=== PATIENT | female | born 1975 | race Caucasian/White ===

== ENCOUNTER 2025-03-03 13:13 | Emergency (ER) | payer MEDICAID ==
[~2025-03-03] VITALS: Ht 167.6 cm; Wt 70.4 kg
[2025-03-03] MEDS: HYDROcodone-ACET 10/325MG TAB PO ONE (15:51)
[2025-03-03 15:53] VITALS: BP 124/77; PULSE 72; RESP 18; TEMP 98.7; O2SAT 98
[2025-03-03 15:53] LABS: Hematocrit 39.5 % (36.0-46.0); Hemoglobin 13.6 g/dL (12.2-16.2); Mean Corpuscular Hemoglobin 31.2 pg (28.0-32.0); Mean Corpuscular Volume 90.4 fL (80.0-100.0); Nucleated Red Blood Cells % 0.0 %
[2025-03-03 15:59] LABS: Chloride 105 mmol/L (98-107); Potassium 4.6 mmol/L (3.5-5.1); Sodium 142 mmol/L (136-145)
[2025-03-03 16:00] LABS: Anion Gap 9 (5-15); Carbon Dioxide 28 mmol/L (20-31)
[2025-03-03 16:01] LABS: Calcium 9.6 mg/dL (8.7-10.4)
[2025-03-03 16:05] LABS: BUN/Creatinine Ratio 20.4 (10.0-20.0); Blood Urea Nitrogen 19 mg/dL (9-23)
[2025-03-03 16:16] LABS: Glucose 120 mg/dL (74-106); Lipase 58 U/L (12-53)
[2025-03-03] MEDS: IOHEXOL 300 MG/ML 100ML BOTTLE IJ ONE (17:22)
--- NOTE | 2025-03-03 17:36 | DVH ---
Exam: CT CT AB PEL WITH IV CON ONLY History: Pancreatic evaluation COMPARISON: None Technique: Multidetector spiral CT of the abdomen and pelvis was performed from lung bases to pubic s ymphysis. Intravenous contrast was administered during this examination. Portal venous imaging was obtained. Axial, coronal and sagittal multiplanar reformats were performed by the technologist on a separate workstation. Radiation Dose : 1. Abdomen/Pelvis: CTDIvol 11.63mGy, DLP 3.92 mGy*cm. CONTRAST: Type of contrast: Omni 300 Contrast injected: 99 ml Findings: Lung Bases: No acute or significant lung base finding. Normal heart size. No pleural or pericardial effusion. Liver: The liver is normal in size. No focal lesions. Normal hepatic vascular enhancement. Diffuse s teatosis. Gallbladder and Biliary Tree: Unremarkable Spleen: Unremarkable Pancreas: The pancreas is normal in appearance without focal lesions or abnormal enhancement. Adrenal Glands: Unremarkable Kidneys: No hydronephrosis. Bladder: Unremarkable Bowel: The stomach is grossly normal in appearance. Small bowel and colon are normal in caliber and d istribution. The appendix is not visualized; however, no secondary findings of acute appendicitis id entified. Ascites: Absent Lymphadenopathy: No mesenteric, retroperitoneal or periportal lymphadenopathy. 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 Vasculature: The visualized abdominal aorta is normal in size and caliber. Abdominal and pelvic vess els demonstrate normal enhancement. Pelvic Organs: Unremarkable Musculoskeletal: No aggressive focal bony lesions, acute fractures or dislocation. IMPRESSION: 1. 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 2. Pancreas appears to be grossly unremarkable. Radiation optimization: All CT scans at this facility use at least one of these dose optimization cam hniques: automated exposure control mA and/or kV adjustment per patient size (includes targeted exam s where dose is matched to clinical indication) or iterative reconstruction.
[2025-03-03] MEDS ORDERED: IBUP-1455 PO (18:23)
[2025-03-03] MEDS ORDERED: HYDR-4798 PO (18:23)
--- NOTE | 2025-03-03 18:24 | ED.PDOC ---
History of Present Illness HPI Comments Patient is a 49-year-old female who arrives to the ED today with complaints of generalized and global body muscle aches and joint pain for the past several days. Patient states she was seen and Jose johana with same complaints. Patient received a workup including a urinalysis at only returned a positive [place] I. Patient states intermittent fever. Vital signs were stable. Chief Complaint: Body Pain Time Seen by MD: 15:23 Primary Care Provider: DR. 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 History Family History Family History: Unobtainable Social History Smoker: Non-Smoker Alcohol: Denies ETOH Use Drugs: Denies Drug Use Lives In: Home Constitutional: denies: chills, diaphoresis, fatigue, fever, malaise, sweats, weakness, others EENTM: denies: blurred vision, double vision, ear bleeding, ear discharge, ear drainage, ear pain, ear ringing, eye pain, eye redness, hearing loss, mouth pain, mouth swelling, nasal discharge, nose bleeding, nose congestion, nose pain, photophobia, tearing, throat pain, throat swelling, voice changes, others Respiratory: denies: cough, hemoptysis, orthopnea, SOB at rest, shortness of breath, SOB with excertion, stridor, wheezing, others Cardiovascular: denies: chest pain, dizzy spells, diaphoresis, Dyspnea on exertion, edema, irregular heart beat, left arm pain, lightheadedness, palpitations, PND, syncope, others Gastrointestinal: denies: abdomen distended, abdominal pain, blood streaked bowels, constipated, diarrhea, dysphagia, difficulty swallowing, hematemesis, melena, nausea, poor appetite, poor fluid intake, rectal bleeding, rectal pain, vomiting, others Genitourinary: denies: abnormal vagina bleeding, burning, dyspareunia, dysuria, flank pain, frequency, hematuria, incontinence, pain, , vagina discharge, urgency, others Neurological: denies: dizziness, fainting, headache, left sided numbness, left sided weakness, numbness, paresthesia, pre-existing deficit, right sided numbness, right sided weakness, seizure, speech problems, tingling, tremors, weakness, others Musculoskeletal: reports: others (Global body and joint pain); denies: back pain, gout, joint pain, joint swelling, muscle pain, muscle stiffness, neck pain Integumetry: denies: bruises, change in color, change in hair/nails, dryness, laceration, lesions, lumps, rash, wounds, others Allergic/Immunocompromised: denies: Difficulty Healing, Frequent Infections, Hives, Itching, others Hematologic/Lymphatic: denies: anemia, blood clots, easy bleeding, easy bruising, swollen glands, others Endocrine: denies: excessive hunger, excessive sweating, excessive thirst, excessive urination, flushing, intolerance to cold, intolerance to heat, unexplained weight gain, unexplained weight loss, others Psychiatric: denies: anxiety, bipolar disorder, depression, hopeless, panic disorder, schizophrenia, sleepless, suicidal, others Physical Exam General Appearance: Moderate Distress (Due to pain concerns), Normal HEENT: Normal ENT Inspection, Pharynx Normal, TMs Normal Neck: Full Range of Motion, Non-Tender, Normal, Normal Inspection Respiratory: Chest Non-Tender, Lungs Clear, No Accessory Muscle Use, No Respiratory Distress, Normal Breath Sounds Cardiovascular: No Edema, No JVD, No Murmur, No Gallop, Normal Peripheral Pulses, Regular Rate/Rhythm Breast Exam: Deferred Gastrointestinal: No Organomegaly, Non Tender, No Pulsatile Mass, Normal Bowel Sounds, Soft Genitalia: Deferred Pelvic: Deferred Rectal: Deferred Extremities: Other (Unremarkable musculoskeletal evaluation. Patient has pain in the muscles and joints, but no signs of trauma, edema, ecchymosis or erythema. Patient displays full range of motion in all joints.) Neurologic: Alert Cerebellar Function: NOT DONE Reflexes: NOT DONE Skin: Dry, Normal Color, Warm Lymphatic: No Adenopathy Was a procedure done? Was a procedure done?: No Differential Dx Considerations may include: Viral syndrome, autoimmune concern, global body pain X-Ray, Labs, Meds, VS Vital Signs Date Time Temp Pulse Resp B/P (MAP) Pulse Ox O2 Delivery O2 Flow Rate FiO2 03/03/25 15:53 98.7 72 16 124/77 (93) 98 98.7 03/03/25 15:53 72 18 98 Room Air 03/03/25 15:27 98.3 66 12 106/67 (80) 98 98.3 03/03/25 13:14 98.0 95 16 132/78 98 98.0 Lab Test 03/03/25 15:44 Range/Units White Blood Count 9.4 4.4-10.8 10^3/uL Red Blood Count 4.37 4.0-5.20 10^6/uL Hemoglobin 13.6 12.2-16.2 g/dL Hematocrit 39.5 36.0-46.0 % Mean Corpuscular Volume 90.4 80.0-100.0 fL Mean Corpuscular Hemoglobin 31.2 28.0-32.0 pg Mean Corpuscular Hemoglobin Concent 34.5 32.0-36.0 g/dL Red Cell Distribution Width 12.4 11.8-14.3 % Platelet Count 287 140-450 10^3/uL Mean Platelet Volume 7.4 6.9-10.8 fL Neutrophils (%) (Auto) 78.3 37.0-80.0 % Lymphocytes (%) (Auto) 11.2 10.0-50.0 % Monocytes (%) (Auto) 9.7 0.0-12.0 % Eosinophils (%) (Auto) 0.5 0.0-7.0 % Basophils (%) (Auto) 0.3 0.0-2.0 % Neutrophils # (Auto) 7.3 1.6-8.6 10 ^3/uL Lymphocytes # (Auto) 1.0 0.4-5.4 10 ^3/uL Monocytes # (Auto) 0.9 0-1.3 10 ^3/uL Eosinophils # (Auto) 0 0-0.8 10 ^3/uL Basophils # (Auto) 0 0-0.2 10 ^3/uL Nucleated Red Blood Cells 0.0 % Sodium Level 142 136-145 mmol/L Potassium Level 4.6 3.5-5.1 mmol/L Chloride Level 105 98-107 mmol/L Carbon Dioxide Level 28 20-31 mmol/L Anion Gap 9 5-15 Blood Urea Nitrogen 19 9-23 mg/dL Creatinine 0.93 0.550-1.02 mg/dL Glomerular Filtration Rate Calc 75 >90 mL/min BUN/Creatinine Ratio 20.4 H 10.0-20.0 Serum Glucose 120 H 74-106 mg/dL Calcium Level 9.6 8.7-10.4 mg/dL C-Reactive Protein High Sensitivity 2.86 H <1.0 mg/dL Lipase 58 H 12-53 U/L Current Medications Medications (Trade) Dose Ordered Sig/Paulino Route Start Time Stop Time Status Last Admin Acetaminophen/ Hydrocodone Bitart ([place] 10/325MG Tab) 1 tab ONCE ONCE PO 03/03/25 15:45 03/03/25 15:46 DC 03/03/25 15:51 X-Ray, Labs, Meds, VS Comment All studies performed the ED were evaluated by me personally. Serum studies were unremarkable for any significant acute concerns other than an elevated lipase. Due to the patient's complaints, I ordered a CT with contrast to evaluate her one but pancreatic and intra-abdominal concerns. Probable mesenteric panniculitis was appreciated. Pancreas was grossly unremarkable. Patient will be sent home with pain medication and advised him to follow up with the primary care provider. Patient should continue with the ciprofloxacin she was prescribed at prior provider visit due to urinary tract concerns. Time of 1ST Reevaluation: 18:21 Reevaluation 1ST: Improved Consultation: PCP Patient Education/Counseling: Diagnosis, Treatment Family Education/Counseling: Diagnosis, Treatment SEPSIS Sepsis Screen Date sepsis recognized/suspect: Mar 03, 2025 Time Sepsis recognized/suspect: 1313 Recent Procedure: No On Antibiotic Therapy: No Respiratory Rate >20: No Heart Rate >90: Yes Temp<36 C (96.8 F) or >38.3 C: No SBP <90 or MAP <65 mmHG: No New Acute Mental Status Change: No Is the patient on CPAP, BIPAP,: No Physician Orders Ct Ab Pel With Iv Con Only (03/03/25 16:50) Heplock Iv (03/03/25 ) Vital Signs Date Time Temp Pulse Resp B/P (MAP) Pulse Ox O2 Delivery O2 Flow Rate FiO2 03/03/25 15:53 98.7 72 16 124/77 (93) 98 98.7 03/03/25 15:53 72 18 98 Room Air 03/03/25 15:27 98.3 66 12 106/67 (80) 98 98.3 03/03/25 13:14 98.0 95 16 132/78 98 98.0 Laboratory Tests Test 03/03/25 15:44 White Blood Count 9.4 10^3/uL (4.4-10.8) Medications Medications Dose Ordered Sig/Paulino Route Start Time Stop Time Status Last Admin Dose Admin Acetaminophen/ Hydrocodone Bitart 1 tab ONCE ONCE PO 03/03/25 15:45 03/03/25 15:46 DC 03/03/25 15:51 Departure 1 Departure Time of Disposition: 18:21 Impression: Primary Impression: Mesenteric panniculitis Disposition: HOME / SELF CARE / HOMELESS Condition: Stable Additional Instructions: Advised patient continue with the ciprofloxacin she received from prior provider. Pain medication as needed. If symptoms continue, patient will need to follow up with the primary care provider for continued evaluation and specialty referral. e-Prescriptions Ibuprofen Micronized (Ibuprofen) 800 Mg Tab 800 MG PO Q8HP PRN, #20 TAB Prov: STEPHEN MARIE PAC 03/03/25 Hydrocodone-Acetaminophen (Hydrocodone Bitartrate/AC 10-325 mg) 1 Tab Tab 1 TAB PO Q8HP PRN, #10 TAB Prov: STEPHEN MARIE PAC 03/03/25 Discharged With: Self, Friend Critical Care Note Critical Care Time?: No Stability Stability form required: No Heart Score Heart Score: Heart Score Response (Comments) Value History N/A 0 EKG N/A 0 Age N/A 0 Risk Factors N/A 0 Troponin N/A 0 Total 0 STEPHEN MARIE PAC Mar 03, 2025 18:24
== END 2025-03-03 18:34 | disposition home or self-care (01) ==
LOC: ER 13:13
DX: K65.4 Sclerosing mesenteritis (principal); Z90.49 Acquired absence of other specified parts of digestive tract; Z79.899 Other long term (current) drug therapy
CPT/HCPCS: 36415; 74177; 80048; 83690; 85025; 86141; 99285; Q9967